=== PATIENT | female | born 1950 | race Caucasian/White ===

== ENCOUNTER 2022-03-06 09:30 | Day surgery (SDC) | payer MEDICARE ==
[2022-03-06] MEDS ORDERED: Lidocaine 1% MPF 2 ML VIAL ONE (10:36)
[2022-03-06] MEDS ORDERED: Bupivacaine PF 0.5% 30 ML VIAL ONE (11:03)
[2022-03-06] MEDS ORDERED: Neomycin-Polymyxin 1 ML AMP ONE (11:03)
[2022-03-06] MEDS ORDERED: Fentanyl 100 MCG/2 ML VIAL ONE (11:09)
[2022-03-06] MEDS ORDERED: Ondansetron PF 4 MG/2 ML Vial ONE (11:09)
[2022-03-06] MEDS ORDERED: PROPOFOL 20 ML ONE (11:09)
[2022-03-06] MEDS ORDERED: Lidocaine 1% PF 5 ML VIAL ONE (11:09)
[2022-03-06] MEDS ORDERED: Dexamethasone 4 mg/ml Vial ONE (11:09)
[2022-03-06 11:10] LABS: Hemoglobin 16.3 g/dL (12.0-15.5); Mean Corpuscular Hemoglobin 32.1 pg (27.0-33.0); Mean Corpuscular Volume 94.7 fl (81.6-98.3); Mean Platelet Volume 9.8 fl (7.4-10.4); Platelet Count 239 10x3/uL (150-450); RBC Distribution Width 13.2 % (11.5-14.5); Red Blood Cell (RBC) Count 5.07 10x6/uL (3.90-5.03); White Blood Cell (WBC) Count 6.2 10x3/uL (3.5-10.5)
[2022-03-06] MEDS ORDERED: Clindamycin/D5W 600 MG in Premix Bag 1 BAG IVPB SCH (12:00)
[2022-03-06] MEDS ORDERED: ePHEDrine Sulfate 50 MG/10 ML VIAL ONE (12:30)
== END 2022-03-06 13:40 | disposition home or self-care (01) ==
LOC: CSHSDC 09:30
PROVIDERS: ATTEND Podiatrist
DX: T84.84XA Pain due to internal orthopedic prosthetic devices, implants and grafts, initial encounter (principal); Z79.899 Other long term (current) drug therapy; J44.9 Chronic obstructive pulmonary disease, unspecified; E03.9 Hypothyroidism, unspecified; E78.00 Pure hypercholesterolemia, unspecified; Z95.1 Presence of aortocoronary bypass graft; I25.10 Atherosclerotic heart disease of native coronary artery without angina pectoris; I44.7 Left bundle-branch block, unspecified; I10 Essential (primary) hypertension; Z87.891 Personal history of nicotine dependence
CPT/HCPCS: 36415; 85027; 93005; 93010; J1100; J2405; J2704; J3010; J3490; S0020